=== PATIENT | female | born 1945 | race Caucasian/White ===

== ENCOUNTER 2017-06-07 22:39 | Emergency (ER) | payer MEDICARE, OTHER ==
[~2017-06-07] VITALS: Ht 157.5 cm; Wt 63.6 kg
[2017-06-08] MEDS ORDERED: PREDNISONE50 MG PO (01:45)
[2017-06-08] MEDS ORDERED: EPIPEN 2-P0.3 MG/0.3 IM (01:47)
[2017-06-08 02:17] VITALS: BP 136/74
== END 2017-06-08 02:21 | disposition home or self-care (01) ==
LOC: ED 22:39
DX: T63.461A Toxic effect of venom of wasps, accidental (unintentional), initial encounter (principal); T78.3XXA Angioneurotic edema, initial encounter; Y92.009 Unspecified place in unspecified non-institutional (private) residence as the place of occurrence of the external cause